=== PATIENT | male | born 1985 | race African-American/Black ===

== ENCOUNTER 2017-09-19 02:38 | Emergency (ER) | payer MEDICAID ==
[~2017-09-19] VITALS: Ht 188 cm; Wt 81.8 kg
[2017-09-19 03:38] VITALS: BP 132/81
== END 2017-09-19 04:02 | disposition home or self-care (01) ==
LOC: EMS 02:40
DX: Z00.8 Encounter for other general examination (principal); F41.9 Anxiety disorder, unspecified; F17.210 Nicotine dependence, cigarettes, uncomplicated
CPT/HCPCS: 99284